=== PATIENT | male | born 1985 | race Caucasian/White ===

== ENCOUNTER 2018-10-31 00:48 | Emergency (ER) | payer OTHER ==
[2018-10-31] MEDS: ALBUTEROL 0.083% (NEB) 2.5 MG/3 ML AMP HHN (01:35)
[2018-10-31] MEDS: IPRATROPIUM (NEB) 0.5 MG/2.5 ML AMP HHN (01:35)
[2018-10-31] MEDS: DEXAMETHASONE 10 MG/ML 1 ML INJ IM (02:10)
== END 2018-10-31 02:20 | disposition home or self-care (01) ==
LOC: FTE 00:48
DX: J45.901 Unspecified asthma with (acute) exacerbation (principal)
CPT/HCPCS: 94664; 96372; 99284-25

== ENCOUNTER 2018-12-10 20:45 | Emergency (ER) | payer OTHER ==
[2018-12-10] MEDS: IBUPROFEN 800 MG TAB PO (22:30)
== END 2018-12-10 23:30 | disposition home or self-care (01) ==
LOC: FTE 23:30
DX: S20.212A Contusion of left front wall of thorax, initial encounter (principal); J45.909 Unspecified asthma, uncomplicated; F17.210 Nicotine dependence, cigarettes, uncomplicated; R40.2412 Glasgow coma scale score 13-15, at arrival to emergency department; Y04.8XXA Assault by other bodily force, initial encounter
CPT/HCPCS: 71100; 99283-25